=== PATIENT | female | born 1955 | race Caucasian/White ===

== ENCOUNTER → 2017-01-21 | Outpatient (CLI) | payer BC ==
[~2017-01-21] MED LIST: REGADENOSON 0.4 MG/5 ML DISP.SYRIN. IV ONE
--- NOTE | 2017-01-21 13:54 | PCVCIMAG ---
APPROVED REPORT Exam: Nuclear Stress Test Indication: Chest pain, Jaw Pain Patient Location: Out-Patient Stress Nurse: Dang Duffy RN [place] Tech:BEREKET MayorgaMT Ht: 5 ft 1 in Wt: 160 lbs BSA: 1.72 m2 HR: 61 bpm BP: 184/85 mmHg BMI: 30.2 Rhythm: Sinus Bradycardia, Incompelte RBBB Medical History Medical History: HTN, Hyperlipidemia, Smoking, Age Medications: Amlodipine, Buspar, Tricor, Bystolic (held 24 hours) Prilosec, Zoloft Allergies: No known drug allergies Pretest Chest Pain Characteristics: No chest pain Exercise History: Sedentary Physical Disabilities: Back NM EXAM: Myocardial Perfusion REST/STRESS Imaging Protocol: Rest Tc-99m/Stress Tc-99m 1 day Resting Data Rest SPECT myocardial perfusion imaging was performed in supine position 45 minutes following the intravenous injection of 10.2 mCi of Tc-99m Sestamibi. Time of rest injection: 0900 Date: 01/21/2017 Administration Route: IV Administration Site: Right Arm Pharmacologic Stress Pharmacologic stress test was performed by injecting Regadenoson 0.4 mg IV push followed by the intravenous injection of 33.6 mCi of Tc-99m Sestamibi. Time of stress injection: 1030 Date: 01/21/2017 Administration Route: IV Administration Site: Right Hand Gated Stress SPECT was performed 45 minutes after stress injection. The images were gated to evaluate regional wall motion and calculate left ventricular ejection fraction. Study Data Post stress, the left ventricular ejection was 80%.. SSS: 4 SRS: 8 SDS: 0 TID = 1.06. Perfusion No evidence of stress induced ischemia or prior myocardial infarction. There is a small area of moderately reduced uptake at the apex which is seen on the stress images as well as the resting images. Wall Motion Normal left ventricular size and function with no regional wall motion abnormalities. Nuclear Conclusion No evidence of stress induced ischemia or prior myocardial infarction. Normal left ventricular size and function with no regional wall motion abnormalities. Post stress, the left ventricular ejection was 80%.. No prior study available for comparison. Interpreted by: Dequan Silverman MD Electronically Approved: 01/21/2017 13:50:45 Stress Test Details Stress Test: Pharmacologic stress was paired with low level exercise. Reason for pharmacologic stress test: physical limitation. HR Resting HR: 61 bpmMax Heart Rate (APMHR): 159 bpm Max HR Achieved: 109 bpmTarget HR (85% APMHR): 135 bpm % of APMHR: 68 Recovery HR: 78 bpm BP Resting BP: 184/85 mmHg Max BP: 158/78 mmHg ECG Resting ECG: Sinus Rhythm, Incomplete RBBB Stress ECG: Sinus Tachycardia, Sinus Rhythm, NSSTT changes Recovery ECG: Sinus Rhythm, Incomplete RBBB Clinical Reason for Termination: Completed protocol Stress Symptoms: Jaw Pain, Profound Dyspnea, Leg Fatigue, Light-Headed, Dizzy Exercise duration: 4 min 00 sec Exercise capacity: 1.6 METs Overall Exercise Capacity for Age: Poor Symptoms resolved during recovery with caffeine. Nurse Comments Patient denied chest pain but admitted to similar jaw pain and anxious as presenting symptom for recent ER visit Stress ECG Conclusion ECG: Non-ischemic <Conclusion> ECG: Non-ischemic
--- NOTE | 2017-01-25 14:13 | PCVCIMAG ---
APPROVED REPORT Study performed: 01/21/2017 07:53:57 EXAM: Comprehensive 2D, Doppler, and color-flow Echocardiogram Patient Location: Echo lab Status: routine BSA: 1.72 HR: 62 bpmBP: 164/84 mmHg Rhythm: NSR Other Information Study Quality: Adequate Indications Murmur Palpitations Chest Pain 2D Dimensions LVEF(%): 53.00 (>50%) IVSd: 10.76 (7-11mm) LVDd: 35.72 mm PWd: 8.34 (7-11mm) LVDs: 26.21 (25-40mm) Left Atrium: 36.21 (27-40mm) Aortic Root: 28.32 mm LV Single Plane 4CH: 68.93 % LV Single Plane 2CH: 66.25 %Bhagat's LVEF: 67.59 % Biplane EF: 68.2 % Volumes Left Atrial Volume (Systole) Single Plane 4CH: 63.64 mLSingle Plane 2CH: 60.13 mL LA ESV Index: 38.00 mL/m2 Aortic Valve AoV Peak Byron.: 1.52 m/s AO Peak Gr.: 9.21 mmHgLVOT Max P.72 mmHg LVOT Max V: 1.20 m/s Mitral Valve E/A Ratio: 1.1 MV Decel. Time: 289.42 ms MV E Max Byron.: 0.65 m/s MV A Byron.: 0.59 m/s IVRT: 110.73 ms Pulmonary Valve PV Peak Byron.: 0.96 m/sPV Peak Gr.: 3.69 mmHg Pulmonary Vein P Vein S: 0.52 m/sP Vein A: 0.28 m/s P Vein D: 0.56 m/sP Vein A Dur.: 117.6 msec P Vein S/D Ratio: 0.93 Left Ventricle The left ventricle is normal size. There is normal LV segmental wall motion. There is normal left ventricular wall thickness. Left ventricular systolic function is normal. The left ventricular ejection fraction is within the normal range. LVEF is 65%. Grade I - abnormal relaxation pattern. Right Ventricle The right ventricle is normal size. The right ventricular systolic function is normal. Atria The left atrium size is normal. The right atrium size is normal. Aortic Valve The aortic valve is normal in structure. No aortic regurgitation is present. There is no aortic valvular stenosis. Mitral Valve The mitral valve is normal in structure. There is no mitral valve regurgitation noted. No evidence of mitral valve stenosis. Tricuspid Valve The tricuspid valve is normal in structure. There is no tricuspid valve regurgitation noted. Pulmonic Valve The pulmonary valve is normal in structure. There is mild pulmonic valvular regurgitation. Great Vessels The aortic root is normal in size. IVC is normal in size and collapses with >50% inspiration Pericardium There is no pericardial effusion. <Conclusion> The left ventricle is normal size. LVEF is 65%. The aortic valve is normal in structure. The mitral valve is normal in structure. The tricuspid valve is normal in structure. The pulmonary valve is normal in structure.
== END | disposition home or self-care (01) ==
LOC: PCVCIMAG 08:01
PROVIDERS: ATTEND Internal Medicine
DX: I45.10 Unspecified right bundle-branch block (principal); R00.1 Bradycardia, unspecified; I10 Essential (primary) hypertension; K52.9 Noninfective gastroenteritis and colitis, unspecified; I37.1 Nonrheumatic pulmonary valve insufficiency; F41.9 Anxiety disorder, unspecified; E78.4 Other hyperlipidemia; F17.200 Nicotine dependence, unspecified, uncomplicated; K21.9 Gastro-esophageal reflux disease without esophagitis; Z90.710 Acquired absence of both cervix and uterus; Z79.899 Other long term (current) drug therapy
CPT/HCPCS: 78452; 93017; 93306; A9500; J2785